=== PATIENT | male | born 1965 | race Caucasian/White ===

== ENCOUNTER → 2022-08-03 | Outpatient (CLI) | payer BC, SELFPAY ==
--- NOTE | 2022-08-03 08:14 | CDU_ITS ---
Reason For Study: Retinal artery occlusion Rt. Velocities/BP Lt. Velocities/BP Prox CCA 87.2/10.7 cm/sec. Prox CCA 108/20.1 cm/sec. Mid CCA 83.4/17.3 cm/sec. Mid CCA 90.5/16.8 cm/sec. Dist CCA 61.7/11.6 cm/sec. Dist CCA 66.3/17.9 cm/sec. Prox ICA 56.4/13.5 cm/sec. Prox ICA 56.4/17.9 cm/sec. Mid ICA 54.2/22.3 cm/sec. Mid ICA 72.9/24.5 cm/sec. Dist ICA 52/19 cm/sec. Dist ICA 56.4/22.3 cm/sec. Rt. ICA/CCA = 0.7. Lt. ICA/CCA = 0.8. Prox ECA 94.9/11.3 cm/sec. Prox ECA 81.7/9.1 cm/sec. Rt. Vert. 34.3/8. cm/sec. Lt. Vert. 20.8/8.7 cm/sec. Right Extracranial There is intimal thickening but no significant atherosclerotic plaque noted in the right common carotid artery. There is intimal thickening but no significant atherosclerotic plaque noted in the right internal carotid artery. There is intimal thickening but no significant atherosclerotic plaque noted in the right external carotid artery. Antegrade flow is noted in the right vertebral artery. Left Extracranial There is intimal thickening but no significant atherosclerotic plaque noted in the left common carotid artery. There is intimal thickening but no significant atherosclerotic plaque noted in the left internal carotid artery. There is intimal thickening but no significant atherosclerotic plaque noted in the left external carotid artery. Antegrade flow is noted in the left vertebral artery. Procedure Carotid Duplex 44601. This is a Carotid Duplex examination using B-mode, color flow and specral Doppler. Exam performed in department. VL/Carotid Duplex Ultrasound Interpretation Summary Intimal thickening at the proximal right internal carotid artery with less than 50% stenosis. Less than 50% stenosis right external carotid artery Intimal thickening at the proximal left internal carotid artery with less than 50% stenosis Less than 50% stenosis left external carotid artery Patent antegrade vertebral arteries bilaterally Ordering Physician: Rob Goyal Referring Physician: Torrie De Santiago Performed By: Carola Arguello RVT
== END | disposition home or self-care (01) ==
PROVIDERS: PCP Internal Medicine; Visit Provider Ophthalmology
DX: H34.231 Retinal artery branch occlusion, right eye (principal)
CPT/HCPCS: 93880